=== PATIENT | male | born 1995 | race Caucasian/White ===

== ENCOUNTER 2023-12-02 08:05 | Emergency (ER) | payer OTHER, SELFPAY ==
--- NOTE | ~2023-12-02 | XR_ITS ---
EXAMINATION: XR finger 4th RT min 2V DATE: 12/02/2023 09:55 INDICATION: Right hand fourth digit injury. TECHNIQUE: 4 views of right hand fourth digit were obtained. COMPARISON: None. FINDINGS: Bone alignment is normal. No acute fracture. There are old healed fractures of the third an d fourth distal phalanges and fifth metacarpal. 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 There is soft tissue swelling of the fourth digit. IMPRESSION: 1. No acute fracture or radiopaque foreign body. Reviewed, dictated and finalized at location A. [facility]
[2023-12-02 08:06] VITALS: BP 150/87; PULSE 112; RESP 18; TEMP 36.6; O2SAT 99
[2023-12-02 08:24] VITALS: BP 142/89; PULSE 91; RESP 18; TEMP 36.9; O2SAT 100
--- NOTE | 2023-12-02 09:32 | ED.WOUNDLAC ---
HPI - Wound/Laceration General Chief Complaint: Wound/Laceration Stated Complaint: lac to right 4th finger Time Seen by Provider: 12/02/23 08:58 Source: patient Mode of arrival: ambulatory Limitations: no limitations History of Present Illness HPI narrative: Patient is a 28-year-old male who presents the ED with report of a laceration to his right 4th digit. Patient reports he was at work morning and sliced his finger against a piece of sheet metal. No active bleeding upon my evaluation. Denies any numbness or tingling. Tetanus up-to-date as of 2 years ago. No other injuries. Related Data Allergies Allergy/AdvReac Type Severity Reaction Status Date / Time No Known Allergies Allergy Verified 12/02/23 08:20 Review of Systems Review of Systems: CONSTITUTIONAL: Denies fever, chills, or sweats. MUSCULOSKELETAL: See HPI NEUROLOGIC: Denies tingling, numbness, or weakness. All systems reviewed & are unremarkable except as noted in HPI and below Exam Narrative: GENERAL: Well appearing, thin, non-toxic, in no acute distress. HEAD: Normocephalic, atraumatic. RESPIRATORY: Airway patent, respirations nonlabored. CARDIOVASCULAR: Regular rate and rhythm. Radial pulses easily palpable MUSCULOSKELETAL: Moves all extremities. No gross deformities. SKIN: Warm, dry, normal color. 3cm linear vertical superficial abrasion/laceration along extensor surface of R 4th digit over PIP joint, no active bleeding. Deeper portion of laceration extends proximally from just proximal to PIP, still fairly superficial. No deeper wounds. Sensation intact. NEURO: A&O X3. Speech clear. Cranial nerves II-XII grossly intact. Steady gait. No ataxic movements. PSYCHIATRIC: Anxious, tremulous. Normal interaction. Course Vital Signs Vital signs: Vital Signs Temperature 97.9 F 12/02/23 08:06 Pulse Rate 112 H 12/02/23 08:06 Respiratory Rate 18 12/02/23 08:06 Blood Pressure 150/87 H 12/02/23 08:06 Pulse Oximetry 99 12/02/23 08:06 Temperature 98.4 F 12/02/23 08:24 Pulse Rate 66 12/02/23 09:44 Respiratory Rate 17 12/02/23 09:44 Blood Pressure 131/81 12/02/23 09:44 Pulse Oximetry 100 12/02/23 09:44 MDM - Wound/Laceration MDM Narrative Medical decision making narrative: XR finger negative, no FB Tetanus UTD Laceration superficial, repaired with steristrips. Placed in metal finger splint to avoid reopening of wound. Patient given wound care instructions and reasons to return. D/C in stable condition. Medical Records Attestation: I reviewed the patient's medical records. Imaging Data Attestation: I personally reviewed and interpreted this imaging study as follows: Discharge Plan Discharge Clinical Impression: Superficial laceration of finger Patient Disposition: Home, Self-Care Condition: Stable Instructions: Antibiotic Form, Laceration (ED), Abrasion (ED), Steristrips (ED) Additional Instructions: Keep wound as dry as possible for next 24 hours. Avoid bending finger as much as possible until more healed. Wear metal finger splint when active. Allow steri-strips to follow off on their own within the next couple of days. Keep wound clean and dry until fully healed. Recommend Tylenol and ibuprofen as needed for pain. Follow-up with your primary care doctor for further evaluation if needed. Return to the ED with worsening severe pain, recurrent injury, recurrent bleeding, redness or warmth surrounding wound for extending up hand, or any other symptoms of concern Follow-up/Referrals: Kika Moseley MD [Primary Care Provider] - William Garces MD [Physician] - (PRIMARY CARE) Time of Disposition: 10:45
[2023-12-02 09:44] VITALS: BP 131/81; PULSE 66; RESP 17; O2SAT 100
[2023-12-02] MEDS: IBUPROFEN 600 MG TABLET PO (09:44)
[2023-12-02 10:52] VITALS: BP 107/70; PULSE 60; RESP 16; TEMP 36.3; O2SAT 100
== END 2023-12-02 10:54 | disposition home or self-care (01) ==
PROVIDERS: Emergency Provider Physician Assistant; PCP Pediatrics
DX: S61.214A Laceration without foreign body of right ring finger without damage to nail, initial encounter (principal); W26.8XXA Contact with other sharp object(s), not elsewhere classified, initial encounter
CPT/HCPCS: 73140; 99283; A9270